=== PATIENT | female | born 1945 | race Caucasian/White ===

== ENCOUNTER 2018-02-21 15:55 | Inpatient (IN) | payer MEDICARE, BC ==
[~2018-02-21] VITALS: Ht 152.5 cm; Wt 66.7 kg
[~2018-02-21 15:55] MED LIST: CITRACAL + D 311 TAB PO; CRANBERRY1 CAP PO; FLAX SEED OIL1000 MG PO; FOLIC ACID0.4 MG PO; IRON FERROUS S325 MG PO; LIPITOR 10MG10 MG PO; LORTAB 7.5/5001 TAB PO; METFORMIN1000 MG PO; PRILOSEC20 M1 PO; TYLENOL 500MG500 MG PO; VITAMIN C BUFF500 MG PO; VITAMIN D3400 IU PO
[2018-04-24] VITALS (11 sets, daily range): BP systolic 102–162; BP diastolic 55–89; PULSE 67–98; TEMP 97–98.2
[2018-04-24] MEDS ORDERED: COZAAR 25MG25 MG/TAB PO (07:22)
[2018-04-24] MEDS ORDERED: GLUCOTROL 5M5 MG/TAB PO (07:22)
[2018-04-24] MEDS ORDERED: PROTONIX 40MG T40 MG PO (07:23)
[2018-04-24] MEDS ORDERED: K-TAB10 PO (07:24)
[2018-04-24] MEDS ORDERED: VENTOLIN0.09 MG IH (07:24)
[2018-04-24] MEDS ORDERED: LIPITOR 80MG80 MG PO (13:21)
[2018-04-24] MEDS ORDERED: PAXIL 20MG20 MG PO (13:21)
[2018-04-24 14:19] LABS: ALBUMIN 4.3 gm/dL (3.5-5.0); BILIRUBIN,TOTAL 0.4 mg/dL (0.0-1.0); CALCIUM 8.9 mg/dL (8.4-10.2); CREATININE, serum 0.42 mg/dL (0.52-1.25); POTASSIUM 3.9 mmol/L (3.4-5.0)
[2018-04-25 04:04] VITALS: BP 114/58; PULSE 77; TEMP 98.3
[2018-04-25 05:55] LABS: BASO % 0.2 % (0.0-2.0); GRAN # 9.2 (1.4-6.5); GRAN % 75.9 % (42.2-75.2); LYMPH # 1.8 (1.2-3.4); LYMPH % 14.7 % (20.0-51.0); MEAN CELL VOLUME 86 fl (80.0-100.0); MEAN CORPUSCULAR HGB CONC 32 g/dl (33.0-37.0); MEAN PLATELET VOLUME 9.5 fl (7.4-10.4); MONO # 1.1 (0.1-0.6); MONO % 8.8 % (1.7-9.3); PLATELET COUNT 216 K/mm3 (130-400); RED BLOOD COUNT 3.61 M/mm3 (4.10-5.30); REDCELL DISTRIBUTION WIDTH-CV 15.1 % (11.5-14.5)
[2018-04-25 05:57] LABS: HEMOGLOBIN 9.8 g/dl (12.5-16.0); MEAN CORPUSCULAR HEMOGLOBIN 27 pg (27.0-31.0)
[2018-04-25 06:13] LABS: CALCIUM 8.7 mg/dL (8.4-10.2); CREATININE, serum 0.6 mg/dL (0.52-1.25); POTASSIUM 4.3 mmol/L (3.4-5.0)
[2018-04-25 09:17] VITALS: BP 105/57; PULSE 70; TEMP 97.3
[2018-04-25 11:24] VITALS: BP 103/45; PULSE 60; TEMP 96.8
[2018-04-25 15:54] VITALS: BP 114/53; PULSE 62; TEMP 98
[2018-04-25 21:15] VITALS: BP 94/44; PULSE 64; TEMP 98.2
[2018-04-26 00:59] VITALS: BP 115/54; PULSE 78; TEMP 98.7
[2018-04-26 05:32] VITALS: BP 105/48; PULSE 67; TEMP 97.9
[2018-04-26 06:31] LABS: BASO % 0.2 % (0.0-2.0); EOS # 0.2 (0.0-0.7); EOS % 1.7 % (0-4.0); GRAN # 4.8 (1.4-6.5); GRAN % 53.1 % (42.2-75.2); HEMATOCRIT 28.7 % (37.0-47.0); HEMOGLOBIN 9.2 g/dl (12.5-16.0); LYMPH % 32.8 % (20.0-51.0); MEAN CELL VOLUME 87 fl (80.0-100.0); MEAN CORPUSCULAR HEMOGLOBIN 28 pg (27.0-31.0); MEAN CORPUSCULAR HGB CONC 32 g/dl (33.0-37.0); MEAN PLATELET VOLUME 9.7 fl (7.4-10.4); MONO # 1.1 (0.1-0.6); MONO % 11.9 % (1.7-9.3); PLATELET COUNT 217 K/mm3 (130-400); RED BLOOD COUNT 3.29 M/mm3 (4.10-5.30); REDCELL DISTRIBUTION WIDTH-CV 15.4 % (11.5-14.5)
[2018-04-26] MEDS ORDERED: ASPI325T6 PO (06:32)
[2018-04-26] MEDS ORDERED: ROXICODONE 55 MG/TAB PO (06:33)
[2018-04-26] MEDS ORDERED: NORCO 325 MG-7.1 TAB PO (06:33)
[2018-04-26 08:00] VITALS: BP 93/46; PULSE 74; TEMP 97.6
[2018-04-26 11:21] VITALS: BP 127/45; PULSE 82; TEMP 97.9
== END 2018-04-26 15:30 | disposition home or self-care (01) | DRG 470 ==
LOC: JCC 04-10 14:00
PROVIDERS: Orthopaedic Surgery; Physician Assistant
PROC: 0SRD0J9 Replacement of Left Knee Joint with Synthetic Substitute, Cemented, Open Approach (ICD-10-PCS; principal; 2018-04-24 13:00)
DX: M17.12 Unilateral primary osteoarthritis, left knee (principal); Z23 Encounter for immunization; E11.9 Type 2 diabetes mellitus without complications; I10 Essential (primary) hypertension; D86.0 Sarcoidosis of lung; I35.0 Nonrheumatic aortic (valve) stenosis; E78.5 Hyperlipidemia, unspecified; Z87.891 Personal history of nicotine dependence; D64.9 Anemia, unspecified
CPT/HCPCS: 99222; 99231-AI; A4314; A9284; C1713; C1776; J0690; J1100; J1815; J2250; J2405; J2704; J7030

== ENCOUNTER → 2018-03-30 | Outpatient (CLI) | payer MEDICARE, BC ==
[2018-03-30 12:23] LABS: HIV 1/2 Antibodies Non-Reactive; HIV-1p24 Antigen Non-Reactive
== END ==
LOC: COL.LAB 11:23
PROVIDERS: Orthopaedic Surgery
DX: Z01.812 Encounter for preprocedural laboratory examination (principal); M17.12 Unilateral primary osteoarthritis, left knee